=== PATIENT | female | born 1995 | race Caucasian/White ===

== ENCOUNTER 2020-12-23 18:26 | Emergency (ER) | payer BC, SELFPAY ==
[2020-12-23 18:37] VITALS: BP 126/77; PULSE 95; RESP 18; TEMP 36.3; O2SAT 99
--- NOTE | 2020-12-23 19:15 | DI.CT_ITS ---
Exam(s) CT HEAD WO EXAM: CT HEAD WO CLINICAL HISTORY: headaches, right sided twitching today, fatigue. TECHNIQUE: Imaging Protocol: Axial computed tomography images with coronal and sagittal reformatted images were created and reviewed COMPARISON: No exams were available for comparison FINDINGS: There are no skull fractures nor fluid in the visualized paranasal sinuses. There is no evidence of intracranial hemorrhage, mass effect, or shift of midline structures. There are no extra-axial fluid collections. The ventricles are not enlarged or shifted and there is no blo od within the ventricular system nor within the basal cisterns. IMPRESSION: No acute intracranial findings on this noninfused CT scan of the brain. RADIATION DOSE DELIVERED: 695.68mGy.cm Total DLP DATA REPOSITORY: All CT scans at this facility are submitted to the National Radiology Data Registry (NRDR) Dose Index Registry (DIR) with the [employer] ([employer]). RADIATION OPTIMIZATION: All CT scans at this facility use at least one of these dose optimization te chniques: automated exposure control; mA and/or kV adjustment per patient size (includes targeted exa ms where dose is matched to clinical indication); or iterative reconstruction.
--- NOTE | 2020-12-23 19:39 | ED.GENADUL_ITS ---
Discharge Plan Disposition Patient Disposition: HOME Condition: Stable Discharge Details Clinical Impression: Chronic headache, Twitching, Fatigue Primary Care Provider: Rachael Coats ED Provider: Sudheer Warren Home Meds and New Rx's Prescriptions: Continued albuterol sulfate 90 mcg/actuation HFA aerosol inhaler 2 puff inhalation Q6H PRN (Reason: shortness of breath or wheezing) Qty: 6.7 RF: 1 No Action ashwagandha root extract 300 mg capsule See Rx Instructions PO .COMPLEX RF: 0 theanine 200 mg capsule 200 mg PO RF: 0 levonorgestrel-ethinyl estrad [[place] 28] 0.15-0.03 mg tablet 1 tab PO DAILY Qty: 84 RF: 4 Discharge Instructions Instructions: Fatigue (ED), General Headache (ED) Additional Instructions: Please contact your primary care physician to arrange follow-up. Be sure to discuss your medications with your doctor including theanine and ashwagandha root. Please follow-up with neurology. Call for an appointment. Return to the ER for any worsening or new concerning symptoms. Referrals: Rachael Coats DO [Primary Care Provider] - Jasmin King MD [ [facility] STAFF PHYSICIAN] - Discharge Data Discharge Date/Time-TO BE ENTERED AT DEPARTURE: 12/24/20 21:16 Medical Decision Making 25-year-old female presents with chronic intermittent headache, fatigue, new onset of jerking motion in her right leg and right arm and 3 recent visual disturbance the last about an hour. Patient patient has only mild frontal headache at this time. She is neurologically intact Consider tic versus focal seizure. CT of the head was interpreted by radiology: No acute intracranial abnormality. No acute intracranial hemorrhage, mass-effect, midline shift or extra-axial collection. Because given chronic headaches and unclear cause of intermittent spastic movements, I will refer patient to neurology. HPI General Mode of arrival: ambulatory . Date/Time Provider Initiated Documentation: 12/23/20 18:37 . Limitations to Documentation: no limitations . Information obtained by: patient . HPI Narrative: 25-year-old female presents with chief complaint of headache. Patient chronic intermittent headaches over the past 2-3 months. She has assoc fatigue and new onset of jerking motion in her right leg and right arm todayvand 3 recent visual disturbance the last about an hour. Patient patient has only mild frontal headache at this time. No neck pain or stiffness. No fever. Related Data Home Medications Medication Instructions Recorded Confirmed emilya root extract 300 mg See Rx Instructions PO .COMPLEX 11/05/20 12/23/20 capsule theanine 200 mg capsule 200 mg PO cap 11/05/20 11/22/20 albuterol sulfate 90 mcg/actuation 2 puff INHALATION Q6H PRN #6.7 g 11/12/20 12/23/20 aerosol inhaler levonorgestrel 0.15 mg-ethinyl 1 tab PO DAILY #84 tab 12/31/20 estradiol 0.03 mg tablet Previous Rx's Medication Instructions Recorded albuterol sulfate 90 mcg/actuation 2 puff INHALATION Q6H PRN #6.7 g 11/12/20 aerosol inhaler levonorgestrel 0.15 mg-ethinyl 1 tab PO DAILY #84 tab 12/31/20 estradiol 0.03 mg tablet Allergies Allergy/AdvReac Type Severity Reaction Status Date / Time Penicillins Allergy Severe throat Verified 12/29/20 15:24 swelling almond Allergy Intermediate rash Verified 12/29/20 15:24 Sulfa (Sulfonamide Allergy Unknown Verified 12/29/20 15:24 Antibiotics) General Stated Complaint: Headache TOMA: 2 Review of Systems All systems reviewed & are unremarkable except as noted in HPI and below Constitutional Constitutional: Denies fever(s) Neurologic Neurologic: Reports as per [facility] Medical History (Updated 01/04/21 @ 17:20 by Angella Brown MD) Acute respiratory disease Adjustment disorder with anxiety Anxiety Dysmenorrhea Dyspareunia History of ovarian cyst Hordeolum internum of left eye IBS (irritable bowel syndrome) Hx post-prandial cramping, along w/ memory/imbalance issues. (12-18mo) PFS (patellofemoral syndrome) Pleuritic pain Family History Father Heart disease [place] in 2019 Paternal Grandmother Cancer Maternal Grandmother Diabetes Social History Smoking/Tobacco Use Status: Never Smoking risk assessment performed?: Yes Alcohol Intake: current Alcohol Intake frequency: holidays/special occasions only Drug use: Never Substance use type: does not use Details: no IV drug use Adopted: No Caregiver/Support person: No Foster care: No Sexually active: Yes Do you think of yourself as: straight/heterosexual Current gender identity: female Other: associate of science in nursing Do you feel safe at home: Yes Do you feel safe in your relationship?: Yes Exam Const General: cooperative and no acute distress [facility] Head: normocephalic Mouth: moist mucous membranes Eyes Conjunctivae: normal conjunctivae Sclera: normal sclerae Pupils: PERRL EOM: EOM intact bilaterally Direct ophthalmoscopy: no papilledema Neck Neck: full ROM and no meningeal signs Resp Auscultation: clear to auscultation bilaterally, no rales, no rhonchi and no wheezes Cardio Rate: regular rate and not tachycardic Rhythm: regular rhythm GI Palpation: soft, not firm, no guarding, no masses, not rigid and nontender Skin General skin exam: no rashes or lesions noted Neuro General: patient alert, patient awake, patient oriented x3 and tone normal Cranial Nerves: CN's II-XI intact bilaterally Cognition: normal cognition Speech: speech normal Gait: normal gait Motor: strength 5/5 throughout Sensory Exam: no sensory deficits noted Extrem General: no edema Psych Appearance: grossly normal Mental Status: mental status grossly normal Speech and Movement: speech and movement normal Course Vital Signs Vital signs: Vital Signs Temperature 36.3 C L 12/23/20 18:37 Pulse 95 H 12/23/20 18:37 Respiratory Rate 18 12/23/20 18:37 Blood Pressure 126/77 12/23/20 18:37 Pulse Oximetry 99 12/23/20 18:37 Temperature 36.3 C L 12/23/20 18:37 Temperature Source Oral 12/23/20 18:37 Pulse 95 H 12/23/20 18:37 Respiratory Rate 18 12/23/20 18:37 Respiratory Effort Non-Labored 12/23/20 18:45 Blood Pressure 126/77 12/23/20 18:37 Blood Pressure Position Sitting 12/23/20 18:37 Pulse Oximetry 99 12/23/20 18:37 Oxygen Delivery Method Nasal Cannula 12/23/20 18:37 Pain Level 5 12/23/20 18:37
[2020-12-23 19:46] LABS: Abs Immature Grans 0.03 10^3/uL (0.0-0.06); Absolute Basophil Count 0.04 10^3/uL (0.0-0.2); Absolute Eosinophil Count 0.23 10^3/uL (0.0-0.7); Absolute Lymphocyte Count 2.06 10^3/uL (1.2-3.4); Absolute Monocyte Count 0.59 10^3/uL (0.1-0.8); Absolute Neutrophil Count 5.24 10^3/uL (1.2-6.7); Basophils % 0.5; Eosinophils % 2.8; HCT 39.7 % (36.0-46.0); HGB 13.2 g/dL (11.2-15.7); Immature Grans % 0.4; Lymphocytes % 25.2; MCH 30.3 pg (27.0-33.0); MCHC 33.2 % (32.0-36.0); MCV 91.3 fL (80-95); MPV 10.6 fL (8.0-11.0); Monocytes % 7.2; Neutrophils % 63.9; Nucleated RBC 0 %; Platelet Count 190 10^3/uL (130-400); RBC 4.35 10^6/uL (3.93-5.22); RDW-SD 40.5 fL; WBC 8.19 10^3/uL (4.4-10.8)
[2020-12-23 20:17] LABS: ALT 22 U/L (14-59); AST 16 U/L (15-37); Albumin 4.6 g/dL (3.4-5.0); Alkaline Phosphatase 48 U/L (46-116); Anion Gap 12.2 mmol/L (3-11); BUN 17 mg/dL (7-18); Bilirubin, Total 0.3 mg/dL (0.2-1.0); CO2 25.8 mmol/L (21.0-32.0); CREATININE 0.7 mg/dL (0.55-1.02); Chloride 104 mmol/L (98-107); Glucose 96 mg/dL (74-106); Potassium 3.4 mmol/L (3.5-5.1); Sodium 142 mmol/L (136-145)
--- NOTE | 2020-12-23 20:32 | DI.VRAD_ITS ---
PROCEDURE INFORMATION: Exam: CT Head Without Contrast Exam date and time: 12/23/2020 7:23 PM Age: 25 years old Clinical indication: Other: Headaches, right sided twitching today, fatigue TECHNIQUE: Imaging protocol: Computed tomography of the head without contrast. COMPARISON: No relevant prior studies available. FINDINGS: Brain: No acute intracranial hemorrhage, mass-effect, midline shift, or extra-axial collection is seen. The edwards white matter differentiation appears preserved. Cerebral ventricles: The ventricular system and basilar cisterns appear appropriate in size and configuration. Paranasal sinuses: The visualized paranasal sinuses appear well-aerated. Mastoid air cells: The mastoid air cells appear well-aerated. Auditory system: The middle ear cavities appear clear. Orbital cavity: The globes and intraorbital structures appear grossly intact. Bones/joints: The bony calvarium appears intact. No depressed skull fracture is seen. Soft tissues: No significant scalp lesion is seen. IMPRESSION: No acute intracranial abnormality seen. Dictated and Authenticated by: Moy Jasso MD. Ordering:JADE Willard MD
[2020-12-23 21:15] VITALS: BP 106/67; PULSE 82; RESP 16; O2SAT 95
[2020-12-23 21:24] LABS: TSH (W/Ref FT4) 3.25 uIU/mL (0.36-3.74)
--- NOTE | 2020-12-23 22:51 | NUR.NOTE ---
referral faxed to [facility] for f/u of chronic headaches with new onset of tic vs seizure and visual disturbances.Nursing Note:
== END 2020-12-24 21:16 | disposition home or self-care (01) ==
PROVIDERS: Emergency Provider Student in an Organized Health Care Education/Training Program; PCP Student in an Organized Health Care Education/Training Program
DX: R51.9 Headache, unspecified (principal); R25.3 Fasciculation; R53.83 Other fatigue
CPT/HCPCS: 36415; 80053; 81025; 99284; 70450; 84443; 85025; 99283

== ENCOUNTER 2021-05-03 11:27 | Outpatient (CLI) | payer SELFPAY ==
[2021-05-03 13:56] VITALS: BP 128/88; PULSE 110; RESP 20; TEMP 37.4; O2SAT 99
[2021-05-03 14:24] VITALS: BP 128/88; PULSE 110; RESP 20; TEMP 37.4; O2SAT 99
[2021-05-03] MEDS: Normal Saline 500 ML 30 ML IV (14:29)
[2021-05-03 14:35] VITALS: BP 110/79; PULSE 95; RESP 20; TEMP 38.6; O2SAT 98
[2021-05-03 14:58] VITALS: BP 113/79; PULSE 104; RESP 20; TEMP 38.7; O2SAT 100
[2021-05-03] MEDS: Acetaminophen 325 MG TAB 650 MG PO (15:33)
[2021-05-03 15:37] VITALS: BP 110/77; PULSE 110; RESP 20; TEMP 38.4; O2SAT 98
[2021-05-03 15:53] VITALS: BP 112/75; PULSE 108; RESP 20; TEMP 38.4; O2SAT 99
== END 2021-05-03 11:28 | disposition home or self-care (01) ==
LOC: INF 11:27
PROVIDERS: PCP Student in an Organized Health Care Education/Training Program; Visit Provider Family Medicine
DX: U07.1 COVID-19 (principal)
CPT/HCPCS: 96365